=== PATIENT | male | born 1990 | race Caucasian/White ===

== ENCOUNTER 2023-06-12 13:38 | Emergency (ER) | payer MEDICAID, SELFPAY ==
[2023-06-12 13:57] VITALS: BP 141/83; PULSE 99; RESP 14; TEMP 36.9; O2SAT 97; BMI 25.1
== END 2023-06-12 14:18 | disposition left against medical advice (07) ==
PROVIDERS: Emergency Provider Emergency Medicine; PCP Family Medicine
DX: F48.8 Other specified nonpsychotic mental disorders (principal)
CPT/HCPCS: 99281